=== PATIENT | male | born 1995 | race Caucasian/White ===

== ENCOUNTER 2018-09-14 12:16 | Emergency (ER) | payer OTHER ==
[2018-09-14 12:55] VITALS: BP 108/65; PULSE 81; TEMP 98.8; BMI 36.0
[2018-09-14] MEDS ORDERED: TETANUS AND DIPHTHERIA TOXOID 0.5 ML DISP.SYRIN IM ONE (13:28)
--- NOTE | 2018-09-14 13:32 | PDOC ---
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 pt has no PMHX no allergies. 09/14/18 13:33 Past History - Past Medical History Allergies/Adverse Reactions: Allergies Allergy/AdvReac Type Severity Reaction Status Date / Time No Known Allergies Allergy Verified 09/14/18 12:53 Home Medications: Ambulatory Orders NK [No Known Home Medication] 09/14/18 COPD: No - Suicide/Smoking/Psychosocial Hx Smoking History: Current some day smoker Information on smoking cessation initiated: No Hx Alcohol Use: No Drug/Substance Use Hx: No General Medical PMHX - Other General PMHX Angina: No Cardiac Arrhythmia: No Arthritis: No GERD: No Glaucoma: No SC: No GI Ulcer Disease: No Peripheral Vascular Disease: No Review of Systems - Review of Systems Able to Perform ROS?: Yes Is the patient limited Indonesian proficient: No Constitutional: No: Symptoms Reported HEENTM: No: Symptoms Reported Respiratory: No: Symptoms reported Cardiac (ROS): No: Symptoms Reported ABD/GI: No: Symptoms Reported : No: Symptoms Reported Musculoskeletal: No: Symptoms Reported Integumentary: Yes: Symptoms Reported *Physical Exam - Vital Signs Last Vital Signs Temp Pulse Resp BP Pulse Ox 98.8 F 81 16 108/65 99 09/14/18 12:53 09/14/18 12:53 09/14/18 12:53 09/14/18 12:53 09/14/18 12:53 - Physical Exam General Appearance: Yes: Nourished, Appropriately Dressed HEENT: positive: EOMI, JOI Neck: positive: Supple. 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 referral to PCP: Yes Medical Decision Making - Medical Decision Making 09/14/18 13:40 cc: accidental needle stick at work wound cleaned with betadine bacitracin and bandaid placed will draw baseline labs pt refused PEP refused tetanus states "may have had 2 yrs ago" risks discussed pt will follow up with his PMD or with as referred all questions asked and answered 09/14/18 13:48 *DC/Admit/Observation/Transfer Diagnosis at time of Disposition: Needlestick injury accident - Discharge Dispostion Disposition: HOME Condition at time of disposition: Good - Referrals Referrals: Boris Remy MD [Staff Physician] - - Patient Instructions Printed Discharge Instructions: How to Handle Body Fluid Exposure -- Non- Healthcare Worker (At Home, Caregi Additional Instructions: keep the area clean and dry soap and water we will call you with the results please follow with the referred doctor or your private doctor for follow up - Post Discharge Activity Forms/Work/School Notes: Back to Work
[2018-09-15 06:06] LABS: HBsAG SCREEN Negative (Negative)
== END 2018-09-14 14:20 | disposition home or self-care (01) ==
LOC: JERFT 12:16
DX: Z77.21 Contact with and (suspected) exposure to potentially hazardous body fluids (principal); S61.234A Puncture wound without foreign body of right ring finger without damage to nail, initial encounter; W46.1XXA Contact with contaminated hypodermic needle, initial encounter; Y93.89 Activity, other specified; Y92.531 Health care provider office as the place of occurrence of the external cause; Y99.0 Civilian activity done for income or pay
CPT/HCPCS: 36415; 86317; 86706; 86803; 87340; 87389; 99281-25